=== PATIENT | female | born 1945 | race Caucasian/White ===

== ENCOUNTER 2021-09-21 14:52 | Emergency (ER) | payer OTHER, BC ==
[2021-09-21] MEDS ORDERED: SODIUM CHLORIDE 0.9% 500 ML INFUS.BAG IV ONE (16:43)
[2021-09-21] MEDS ORDERED: MECLIZINE HCL 25 MG TABLET (FP) PO ONE (16:43)
[2021-09-21 17:09] VITALS: TEMP 98; BMI 32.2
[2021-09-21] MEDS ORDERED: MECLIZINE HCL 25 MG TABLET (FP) ONE (17:43)
[2021-09-21 17:52] LABS: BASO % 0.5 % (0-2.0); EOS % 0.8 % (0-4.5); HEMATOCRIT 37.1 % (32.4-45.2); HEMOGLOBIN 12.5 GM/dL (10.7-15.3); LYMPH % 33.2 % (8-40); MCH 36.1 pg (25.7-33.7); MCHC 33.6 g/dl (32.0-36.0); MEAN CELL VOLUME 107.5 fl (80-96); MEAN PLT VOLUME 8.1 fl (7.5-11.1); MONO % 8.5 % (3.8-10.2); PLATELET COUNT 305 10^3/uL (134-434); RBC 3.45 M/mm3 (3.60-5.2); RDW 14.5 % (11.6-15.6); WHITE BLOOD COUNT 4.7 K/mm3 (4.0-10.0)
[2021-09-21 18:10] LABS: CHLORIDE 105 mmol/L (98-107); SODIUM 139 mmol/L (136-145)
[2021-09-21 18:12] LABS: ALBUMIN 3.5 g/dl (3.4-5.0); ANION GAP 4 MMOL/L (8-16); BLOOD UREA NITROGEN 17.3 mg/dL (7-18); CALCIUM 9.3 mg/dL (8.5-10.1); CO2 30 mmol/L (21-32)
[2021-09-21 18:13] LABS: GLUCOSE,RANDOM 91 mg/dL (74-106)
[2021-09-21 18:16] LABS: CREATININE 0.8 mg/dL (0.55-1.3); SGOT/AST 34 U/L (15-37); SGPT/ALT 25 U/L (13-61)
[2021-09-21 18:17] LABS: BILIRUBIN,TOTAL 0.7 mg/dL (0.2-1); TOT PROT 7.4 g/dl (6.4-8.2)
[2021-09-21 18:18] LABS: ALK PHOS 66 U/L (45-117)
[2021-09-21 20:11] LABS: ANISOCYTOSIS 0; MACROCYTOSIS 2+
[2021-09-21] MEDS ORDERED: FAMOTIDINE 20 MG/50 ML IVPB 20 MG/50 ML MG IVPB ONE ×2 (20:46→20:56)
[2021-09-21 21:26] VITALS: BP 121/74; PULSE 76
== END 2021-09-21 21:50 | disposition home or self-care (01) ==
LOC: JER 14:52
PROC: 3E033NZ Introduction of Analgesics, Hypnotics, Sedatives into Peripheral Vein, Percutaneous Approach (ICD-10-PCS; principal; 2021-09-21)
DX: R42 Dizziness and giddiness (principal)
CPT/HCPCS: 36415; 70450-TC; 80053; 82550; 83735; 84484; 85025; 93005; 93010; 99284-25